=== PATIENT | female | born 2000 | race African-American/Black ===

== ENCOUNTER 2024-08-12 11:49 | Emergency (ER) | payer MEDICAID ==
[~2024-08-12] VITALS: Ht 165.1 cm; Wt 57.0 kg
[2024-08-12 12:03] VITALS: BP 137/88; PULSE 96; RESP 16; O2SAT 100
[2024-08-12] MEDS ORDERED: BACITRACIN ZINC OINT UDPKT TOP ONE (12:15)
[2024-08-12] MEDS ORDERED: ACETAMINOPHEN 325MG TABLET PO ONE (12:15)
[2024-08-12] MEDS ORDERED: LIDOCAINE HCL/PF 1% 10 MG/ML 5ML VIAL INFIL ONE (12:15)
[2024-08-12 15:06] VITALS: TEMP 97.7
[2024-08-12] MEDS: ACETAMINOPHEN 325MG TABLET PO NR (15:06)
[2024-08-12] MEDS: LIDOCAINE HCL/PF 1% 10 MG/ML 5ML VIAL INFIL NR (15:06)
[2024-08-12] MEDS: BACITRACIN ZINC OINT UDPKT TOP NR (15:06)
[2024-08-12] MEDS ORDERED: ACET-3800 MT (15:09)
[2024-08-12] MEDS ORDERED: CLIN-194 MT (15:11)
== END 2024-08-12 16:45 | disposition home or self-care (01) ==
LOC: ER 11:49
DX: R22.2 Localized swelling, mass and lump, trunk (principal); Z88.0 Allergy status to penicillin
CPT/HCPCS: 99283; J3490; Z7610 ×4; 99282